=== PATIENT | male | born 1980 | race Caucasian/White ===

== ENCOUNTER 2016-12-08 13:31 | Emergency (ER) | payer MEDICARE | END 2016-12-08 16:12 | disposition home or self-care (01) | LOC: D.ER 13:31 | DX: S81.852A Open bite, left lower leg, initial encounter (principal); W54.0XXA Bitten by dog, initial encounter; Y93.89 Activity, other specified; Y92.019 Unspecified place in single-family (private) house as the place of occurrence of the external cause; E11.9 Type 2 diabetes mellitus without complications; F20.9 Schizophrenia, unspecified ==